=== PATIENT | male | born 1940 | race Caucasian/White ===

== ENCOUNTER 2020-10-28 19:13 | Emergency (ER) | payer MEDICARE, BC ==
[~2020-10-28] VITALS: Ht 167.6 cm; Wt 104.5 kg
[~2020-10-28 19:13] MED LIST: VALA10002 PO
--- NOTE | 2020-10-28 19:13 | NUR ---
PT ARRIVES VIA EMS TO BED 5, WITH LEFT SIDE WEAKNESS, ONSET AT 1730 PER PT, HE WAS COOKING DINNER. LAB IN TO DRAW, 2ND IV INITIATED. B/P 184/110. PT TO CT. NICARDAPINE READY. WHILE AT CT TPA DRAWN UP AND READY WITH PT WEIGHT OF 230LBS.
--- NOTE | 2020-10-28 19:15 | NUR ---
SPOKE WITH PT ROSE MARY SMALLS. WOULD LIKE UPDATE SOON POSSIBLE ON PT STATUS. WILL UPDATE WHEN INFORMATION IS AVAILABLE. HOME #: [phone] AND CELL #: [phone]
[2020-10-28] MEDS ORDERED: iohexol 350MG/ML 100ml bottle IV ONE (19:16)
[2020-10-28] MEDS ORDERED: niCARDipine-NS 40mg/200ml IVPB 200 ML IV SCH (19:32)
--- NOTE | 2020-10-28 19:32 | NUR ---
NICARDIPINE STARTED UPON RETURN FROM CT. PT HAS A HEMMORAHGE. B/P MONITORED Q 5MIN AND TITRATE. NIHSS 13
[2020-10-28 19:37] LABS: BASOPHILS % (AUTO) 0.8 % (0-1); EOSINOPHILS # (AUTO) 0.2 X10'3 (0-0.9); EOSINOPHILS % (AUTO) 3.2 % (0-6); HEMATOCRIT 39.6 % (42.0-52.0); HEMOGLOBIN 13.6 g/dl (14.0-17.9); LYMPHOCYTES # (AUTO) 0.9 X10'3 (1.1-4.8); LYMPHOCYTES % (AUTO) 17.2 % (21-51); MEAN CORPUSCULAR HEMOGLOBIN 30.6 PG (27.0-31.0); MEAN CORPUSCULAR HGB CONC 34.5 g/dL (33.0-36.5); MEAN CORPUSCULAR VOLUME 88.6 FL (78-98); MEAN PLATELET VOLUME 8.7 FL (7.4-10.4); MONOCYTES # (AUTO) 0.7 X10'3 (0-0.9); MONOCYTES % (AUTO) 14.1 % (2-12); NEUTROPHILS # (AUTO) 3.3 X10'3 (1.8-7.7); NEUTROPHILS % (AUTO) 64.7 % (42-75); PLATELET COUNT 122 X10'3 (140-440); RED BLOOD COUNT 4.46 X10'6 (4.70-6.10); WHITE BLOOD COUNT 5.2 X10'3 (4.5-11.0)
[2020-10-28 19:40] LABS: PARTIAL THROMBOPLASTIN TIME 27 SECONDS (22-32)
--- NOTE | 2020-10-28 19:45 | NUR ---
PT THRASHING ABOUT, UNCOMFORTABLE, ATTEMPT TO VOID BUT UNABLE. F/C INSERTED WITH 300ML CLEAR YELLOW URINE OUT.
[2020-10-28 19:46] LABS: ALANINE AMINOTRANSFERASE 32 U/L (12-78); ALBUMIN/GLOBULIN RATIO 1.2 (1.1-1.5); ALKALINE PHOSPHATASE 53 IU/L (46-116); ANION GAP 7 (8-16); ASPARTATE AMINO TRANSFERASE 27 U/L (10-37); BILIRUBIN,TOTAL 0.4 MG/DL (0.1-1.0); BLOOD UREA NITROGEN 25 MG/DL (7-18); BUN/CREATININE RATIO 26.3 (5.4-32.0); CALCIUM 9.1 MG/DL (8.5-10.1); CHLORIDE 107 MMOL/L (99-107); CREATININE 0.95 MG/DL (0.60-1.10); GLUCOSE 106 MG/DL (70-104); POTASSIUM 4.2 MMOL/L (3.5-5.1); SODIUM 145 MMOL/L (135-145); TOTAL CARBON DIOXIDE 31.4 MMOL/L (24-32); TOTAL PROTEIN 7.3 G/DL (6.4-8.2); eGFR 77 ML/MIN
[2020-10-28 19:48] LABS: TROPONIN I < 0.04 NG/ML (0.0-0.05)
[2020-10-28] MEDS ORDERED: niCARDipine-NS 40mg/200ml IVPB 250 ML IV SCH (20:00)
[2020-10-28 21:43] VITALS: BP 124/79
== END 2020-10-28 21:48 | disposition short-term general hospital (02) ==
LOC: ER 19:13
DX: R58 Hemorrhage, not elsewhere classified (principal); I10 Essential (primary) hypertension; R53.1 Weakness; R20.0 Anesthesia of skin; Z98.890 Other specified postprocedural states; Z72.89 Other problems related to lifestyle; Z79.2 Long term (current) use of antibiotics
CPT/HCPCS: 36415; 70450; 71045; 80053; 82948; 84484; 85025; 85610; 85730; 93005; 96365; 99291; Q9967